=== PATIENT | female | born 1975 | race Caucasian/White ===

== ENCOUNTER 2016-12-04 03:38 | Emergency (ER) | payer OTHER ==
[~2016-12-04 03:38] MED LIST: CIPRO PO; METHADONE PO; PHENERGAN PO
== END 2016-12-04 05:28 | disposition home or self-care (01) ==
LOC: CED 03:38
DX: L03.115 Cellulitis of right lower limb (principal); L72.9 Follicular cyst of the skin and subcutaneous tissue, unspecified; F17.210 Nicotine dependence, cigarettes, uncomplicated; Z85.41 Personal history of malignant neoplasm of cervix uteri
CPT/HCPCS: 99283